=== PATIENT | female | born 1955 | race Caucasian/White ===

== ENCOUNTER → 2018-11-13 | Outpatient (CLI) | payer OTHER ==
[~2018-11-13] MED LIST: ALBU8.5H8 IH; BUPR-47 PO; DILT240C94 PO; LOVA40TA2 PO; OMEP40CA37 PO; VALS1TAB73 PO
== END | disposition home or self-care (01) ==
LOC: RAH 14:21
PROVIDERS: ATTEND Internal Medicine
DX: Z13.6 Encounter for screening for cardiovascular disorders (principal); K44.9 Diaphragmatic hernia without obstruction or gangrene
CPT/HCPCS: 75571

== ENCOUNTER 2021-12-23 10:42 | Observation (INO) | payer OTHER ==
[~2021-12-23] VITALS: Ht 162.6 cm; Wt 96.6 kg
[~2021-12-23 10:42] MED LIST changes: -BUPR-47 PO; +BUPR-49 PO; +OMEP40CA21 PO; -OMEP40CA37 PO
[2021-12-23] MEDS ORDERED: IPRATROPIUM/ALBUTEROL SULFATE 3 ML SOLUTION IH SCH (11:30)
[2021-12-23 11:36] LABS: BASOPHILS % (AUTO) 0.5 % (0.0-5.0); HEMATOCRIT 37.8 % (36-48); LYMPHOCYTES % (AUTO) 18.7 % (21.0-51.0); MEAN CORPUSCULAR HEMOGLOBIN 28.1 pg (27.0-33.0); MEAN CORPUSCULAR HGB CONC 32.5 g/dL (32.0-36.0); MEAN CORPUSCULAR VOLUME 86.5 fL (79-99); MONOCYTES % (AUTO) 14.8 % (3.0-13.0); NEUTROPHILS % (AUTO) 64.8 % (40.0-77.0); PLATELET COUNT (AUTO) 246 K/uL (130-400); RED BLOOD CELL COUNT(AUTO) 4.37 MIL/uL (4.00-5.50); RED CELL DISTRIBUTION WIDTH 14.5 % (11.0-15.5); WHITE BLOOD COUNT (AUTO) 5.9 K/uL (4.8-10.8)
[2021-12-23 11:40] LABS: APPEARANCE,URINE TURBID (CLEAR); BILIRUBIN,URINE NEGATIVE (NEGATIVE); COLOR,URINE YELLOW (YELLOW); GLUCOSE, URINE (UA) NEGATIVE (NEGATIVE); KETONES,URINE NEGATIVE (NEGATIVE); LEUKOCYTE ESTERASE ,URINE NEGATIVE Leu/uL (NEGATIVE); NITRATE,URINE NEGATIVE (NEGATIVE); OCCULT BLOOD,URINE NEGATIVE (NEGATIVE); PH,URINE 5.5 (5.0-8.0); PROTEIN,URINE 70 mg/dL (NEGATIVE)
[2021-12-23 11:44] LABS: BACTERIA,URINE FEW /HPF (None Seen); HYALINE CASTS, URINE 26-50 /LPF (0-1 /LPF); MUCUS,URINE MANY LPF (None Seen); SQUAMOUS EPITHELIAL CELL,UR MANY /HPF (0-2)
[2021-12-23 11:53] LABS: ALBUMIN 3.5 g/dL (3.5-5.0); CREATININE 1.1 mg/dL (0.5-1.5); POTASSIUM 3.9 mmol/L (3.5-5.1); TOTAL PROTEIN, SERUM 7.4 g/dL (6.0-8.3)
[2021-12-23 12:08] LABS: B-TYPE NATRIURETIC PEPTIDE 7 pg/mL (0-100)
[2021-12-23] MEDS ORDERED: ALBUTEROL 0.083% 2.5 MG/3 ML INH IH SCH (12:30)
[2021-12-23] MEDS ORDERED: ALBUTEROL 0.083% 2.5 MG/3 ML INH IH ONE (12:44)
[2021-12-23] MEDS ORDERED: MAGNESIUM 2GM PREMIX 50ML 50 ML IV SCH (12:50)
[2021-12-23] MEDS ORDERED: HEPARIN 25,000 UNITS/250ML D5W 250 ML IV SCH ×2 (13:30→17:00)
[2021-12-23] MEDS ORDERED: HEPARIN 5,000 UNIT VIAL SQ PRN (13:30)
[2021-12-23 13:46] LABS: INR 0.93 (0.85-1.15); PROTHROMBIN TIME 9.6 SEC (9.6-11.6)
[2021-12-23 13:47] LABS: PARTIAL THROMBOPLASTIN TIME 27.1 SEC (26.3-35.5)
[2021-12-23] MEDS ORDERED: FLUO20TA29 PO (14:42)
[2021-12-23] MEDS ORDERED: MAGN250T35 PO (14:42)
[2021-12-23] MEDS ORDERED: ASPI-1197 PO (14:42)
[2021-12-23] MEDS ORDERED: DOCU-378 PO (14:42)
[2021-12-23] MEDS ORDERED: OMEP40CA21 PO (14:42)
[2021-12-23] MEDS ORDERED: ZINC220T4 PO (14:42)
[2021-12-23] MEDS ORDERED: LOSA1TAB37 PO (14:42)
[2021-12-23] MEDS ORDERED: ADV250 IH (14:42)
[2021-12-23] MEDS ORDERED: ASCO100031 PO (14:42)
[2021-12-23] MEDS ORDERED: ATOR20TA65 PO (14:42)
[2021-12-23] MEDS ORDERED: ESTR1PAT87 TD (14:42)
[2021-12-23] MEDS ORDERED: CHOL100046 PO (14:42)
[2021-12-23] MEDS ORDERED: ALBU2.5V2 IH (14:42)
[2021-12-23] MEDS ORDERED: GUAIFENESIN-CODEINE 5 ML SYRUP ONE (15:48)
[2021-12-23] MEDS ORDERED: GUAIFENESIN-CODEINE 5 ML SYRUP PO ONE (16:00)
[2021-12-23] MEDS ORDERED: TEMAZEPAM 15 MG CAPSULE PO PRN (17:00)
[2021-12-23] MEDS ORDERED: ACETAMINOPHEN 325 MG TAB PO PRN (17:00)
[2021-12-23] MEDS ORDERED: LACTULOSE 20 GM/30 ML UDCUP PO PRN (17:00)
[2021-12-23] MEDS ORDERED: CLONIDINE HCL 0.1 MG TABLET PO PRN (17:00)
[2021-12-23] MEDS ORDERED: ACETAMINOPHEN 650 MG SUPPOSITORY RC PRN (17:00)
[2021-12-23] MEDS ORDERED: HYDRALAZINE 20MG/ML VIAL IV PRN (17:00)
[2021-12-23] MEDS ORDERED: ONDANSETRON 4MG INJ IVP PRN (17:00)
[2021-12-23 19:50] LABS: INR 0.97 (0.85-1.15); PROTHROMBIN TIME 10.6 SEC (9.6-11.6)
[2021-12-23 20:10] LABS: PARTIAL THROMBOPLASTIN TIME > 139.0 SEC (26.3-35.5)
[2021-12-23] MEDS: GUAIFENESIN-DM 200/20 MG 10 ML PO SCH (21:23)
[2021-12-23] MEDS: ENOXAPARIN SODIUM 100 MG/1 ML SQ SCH (21:24)
[2021-12-23 22:10] VITALS: BP 139/69
[2021-12-24 02:22] LABS: BASOPHILS % (AUTO) 0.5 % (0.0-5.0); EOSINOPHILS % (AUTO) 2.2 % (0.0-8.0); HEMATOCRIT 33.3 % (36-48); LYMPHOCYTES % (AUTO) 38.1 % (21.0-51.0); MEAN CORPUSCULAR HEMOGLOBIN 27.8 pg (27.0-33.0); MEAN CORPUSCULAR HGB CONC 31.8 g/dL (32.0-36.0); MEAN CORPUSCULAR VOLUME 87.4 fL (79-99); MONOCYTES % (AUTO) 16.3 % (3.0-13.0); NEUTROPHILS % (AUTO) 42.6 % (40.0-77.0); PLATELET COUNT (AUTO) 196 K/uL (130-400); RED BLOOD CELL COUNT(AUTO) 3.81 MIL/uL (4.00-5.50); RED CELL DISTRIBUTION WIDTH 14.4 % (11.0-15.5); WHITE BLOOD COUNT (AUTO) 3.7 K/uL (4.8-10.8)
[2021-12-24 02:44] LABS: MAGNESIUM 2.2 mg/dL (1.80-2.40); POTASSIUM 3.3 mmol/L (3.5-5.1)
[2021-12-24] MEDS: OSELTAMIVIR PHOSPHATE 75 MG CAP PO SCH ×3 (02:44→20:15)
[2021-12-24] MEDS: GUAIFENESIN-DM 200/20 MG 10 ML PO SCH ×4 (02:44→20:15)
[2021-12-24] MEDS ORDERED: DEXAMETHASONE SOD PHOSPHATE 4 MG/ML 1ML VIAL IV ONE (03:00)
[2021-12-24 04:07] LABS: B-TYPE NATRIURETIC PEPTIDE < 5 pg/mL (0-100)
[2021-12-24 04:29] VITALS: BP 121/55
[2021-12-24] MEDS ORDERED: LIDOCAINE HCL-MPF 1% 2ML VIAL IV PRN (06:00)
[2021-12-24] MEDS ORDERED: MAGNESIUM 2GM PREMIX 50ML 50 ML IV PRN (06:00)
[2021-12-24] MEDS ORDERED: POTASSIUM CHLORIDE 10MEQ/100ML 100 ML IV PRN (06:00)
[2021-12-24] MEDS ORDERED: POTASSIUM CHLORIDE 10% ELIXIR 20 MEQ/15 ML UDCUP PO PRN (06:00)
[2021-12-24 07:35] VITALS: BP 148/70
[2021-12-24] MEDS: PANTOPRAZOLE 40 MG TAB DR PO SCH (08:37)
[2021-12-24] MEDS: DOCUSATE SODIUM 100 MG CAP PO SCH (08:37)
[2021-12-24] MEDS: MAGNESIUM OXIDE 400 MG TABLET PO SCH (08:37)
[2021-12-24] MEDS: LOSARTAN/HYDROCHLOROTHIAZIDE 50-12.5MG TABLET PO SCH (08:37)
[2021-12-24] MEDS: FLUTICASONE/VILANTEROL 1 EACH AER.POW.BA IH SCH (08:37)
[2021-12-24] MEDS: ATORVASTATIN 20 MG TABLET PO SCH (08:37)
[2021-12-24] MEDS: ZINC SULFATE 220 CAPSULE PO SCH (08:38)
[2021-12-24] MEDS: ASCORBIC ACID 500 MG TAB PO SCH (08:38)
[2021-12-24] MEDS: FLUOXETINE HCL 20 MG CAPSULE PO SCH (08:38)
[2021-12-24] MEDS: ASPIRIN 81MG CHEW TAB PO SCH (08:39)
[2021-12-24] MEDS: ENOXAPARIN SODIUM 100 MG/1 ML SQ SCH (08:40)
[2021-12-24] MEDS: ***HM*** (Cholecalciferol (Vitamin D3) (Vitamin D3) 25 MCG) PO SCH (09:00)
[2021-12-24] MEDS: KCL 20 MEQ ERTAB PO PRN ×3 (09:23→20:17)
[2021-12-24 11:30] VITALS: BP 127/52
[2021-12-24] MEDS ORDERED: ALBUTEROL 0.083% 2.5 MG/3 ML INH IH ONE (14:32)
[2021-12-24] MEDS ORDERED: ALBUTEROL 0.083% 2.5 MG/3 ML INH IH STA (14:36)
[2021-12-24] MEDS: IPRATROPIUM/ALBUTEROL SULFATE 3 ML SOLUTION IH SCH ×3 (14:41→22:25)
[2021-12-24 15:20] VITALS: BP 117/73
[2021-12-24] MEDS ORDERED: CEFTRIAXONE 1G VIAL IVP SCH (16:30)
[2021-12-24] MEDS ORDERED: AZITHROMYCIN 500MG+NS 250ML IVPB SCH (16:30)
[2021-12-24] MEDS: SOLU-MEDROL 40MG VIAL IVP SCH (16:43)
[2021-12-24] MEDS ORDERED: DEXAMETHASONE 4 MG TAB PO SCH (20:00)
[2021-12-24 20:18] VITALS: BP 140/47
[2021-12-24] MEDS ORDERED: IPRATROPIUM/ALBUTEROL SULFATE 3 ML SOLUTION IH ONE (22:30)
[2021-12-24 23:47] VITALS: BP 116/49
[2021-12-25] MEDS: SOLU-MEDROL 40MG VIAL IVP SCH ×2 (00:56→08:54)
[2021-12-25] MEDS: IPRATROPIUM/ALBUTEROL SULFATE 3 ML SOLUTION IH SCH ×2 (02:06→07:06)
[2021-12-25] MEDS: GUAIFENESIN-DM 200/20 MG 10 ML PO SCH ×2 (03:10→09:10)
[2021-12-25 03:59] VITALS: BP 120/57
[2021-12-25 04:50] LABS: HEMATOCRIT 32.3 % (36-48); LYMPHOCYTES % (AUTO) 14.3 % (21.0-51.0); MEAN CORPUSCULAR HEMOGLOBIN 28.3 pg (27.0-33.0); MEAN CORPUSCULAR HGB CONC 32.2 g/dL (32.0-36.0); MONOCYTES % (AUTO) 7.1 % (3.0-13.0); NEUTROPHILS % (AUTO) 78.4 % (40.0-77.0); PLATELET COUNT (AUTO) 215 K/uL (130-400); RED BLOOD CELL COUNT(AUTO) 3.67 MIL/uL (4.00-5.50); RED CELL DISTRIBUTION WIDTH 14.1 % (11.0-15.5); WHITE BLOOD COUNT (AUTO) 4.1 K/uL (4.8-10.8)
[2021-12-25 05:12] LABS: ALBUMIN 3.3 g/dL (3.5-5.0); CREATININE 0.9 mg/dL (0.5-1.5); POTASSIUM 4.1 mmol/L (3.5-5.1); TOTAL PROTEIN, SERUM 6.8 g/dL (6.0-8.3)
[2021-12-25 07:25] VITALS: BP 120/64
[2021-12-25] MEDS: ***HM*** (Cholecalciferol (Vitamin D3) (Vitamin D3) 25 MCG) PO SCH (08:49)
[2021-12-25] MEDS: PANTOPRAZOLE 40 MG TAB DR PO SCH (08:54)
[2021-12-25] MEDS: DOCUSATE SODIUM 100 MG CAP PO SCH (08:54)
[2021-12-25] MEDS: LOSARTAN/HYDROCHLOROTHIAZIDE 50-12.5MG TABLET PO SCH (08:54)
[2021-12-25] MEDS: OSELTAMIVIR PHOSPHATE 75 MG CAP PO SCH (08:55)
[2021-12-25] MEDS: ATORVASTATIN 20 MG TABLET PO SCH (08:55)
[2021-12-25] MEDS: ASPIRIN 81MG CHEW TAB PO SCH (08:55)
[2021-12-25] MEDS: ASCORBIC ACID 500 MG TAB PO SCH (08:55)
[2021-12-25] MEDS: ZINC SULFATE 220 CAPSULE PO SCH (08:56)
[2021-12-25] MEDS: FLUOXETINE HCL 20 MG CAPSULE PO SCH (08:56)
[2021-12-25] MEDS: MAGNESIUM OXIDE 400 MG TABLET PO SCH (08:56)
[2021-12-25] MEDS: FLUTICASONE/VILANTEROL 1 EACH AER.POW.BA IH SCH (09:00)
[2021-12-25 11:25] VITALS: BP 134/68
[2021-12-25] MEDS ORDERED: OSEL75 PO (13:56)
[2021-12-25] MEDS ORDERED: LEVO750T68 PO (13:56)
[2021-12-25] MEDS ORDERED: PRED20TA3 PO (13:56)
== END 2021-12-25 14:57 | disposition home or self-care (01) ==
LOC: EDH 10:42 → EDHIP 15:42 → INTOOBSV 15:42 → UNDOADMOB 15:42 → OBSVTOIN 15:42 → EDHIP 16:51 → 4BH 21:18
PROVIDERS: ADMIT Internal Medicine; ATTEND Internal Medicine
DX: J45.901 Unspecified asthma with (acute) exacerbation (principal); Z20.822 Contact with and (suspected) exposure to COVID-19; J10.1 Influenza due to other identified influenza virus with other respiratory manifestations; I12.9 Hypertensive chronic kidney disease with stage 1 through stage 4 chronic kidney disease, or unspecified chronic kidney disease; N18.30 Chronic kidney disease, stage 3 unspecified; G47.33 Obstructive sleep apnea (adult) (pediatric); E78.5 Hyperlipidemia, unspecified; F41.9 Anxiety disorder, unspecified; J44.1 Chronic obstructive pulmonary disease with (acute) exacerbation; R77.8 Other specified abnormalities of plasma proteins; K44.9 Diaphragmatic hernia without obstruction or gangrene; Z79.890 Hormone replacement therapy; Z90.710 Acquired absence of both cervix and uterus; Z79.899 Other long term (current) drug therapy; Z98.891 History of uterine scar from previous surgery; Z90.722 Acquired absence of ovaries, bilateral; Z90.49 Acquired absence of other specified parts of digestive tract; Z79.82 Long term (current) use of aspirin
CPT/HCPCS: 94640 ×8; 96372 ×2; 96365; 96366 ×2; 99284; 82550 ×4; 83735 ×2; 83874 ×3; 84484 ×4; 80053 ×2; 83880 ×2; 85025 ×3; 85378; 85610 ×2; 85730 ×2; 87040 ×2; 87088; 87804 ×2; 83605; 81001; 36415 ×3; 87635; 71045; 78582; 96375; 96367; 84100; 80048; 93970; 96376; 84145; G0378 ×42; J1650 ×2; J1644 ×2; A9540; A9558; J1100; J0696; J2920 ×3; J0456

== ENCOUNTER 2022-02-17 12:46 | Emergency (ER) | payer OTHER ==
[~2022-02-17 12:46] MED LIST changes: +ADV250 IH; +ALBU2.5V2 IH; +ASCO100031 PO; +ASPI-1197 PO; +ATOR20TA65 PO; +CHOL100046 PO; +DOCU-378 PO; +ESTR1PAT87 TD; +FLUO20TA29 PO; +LEVO750T68 PO; +LOSA1TAB37 PO; +MAGN250T35 PO; +OSEL75 PO; +PRED20TA3 PO; +ZINC220T4 PO
[2022-02-17 13:53] VITALS: BP 139/71
[2022-02-17] MEDS ORDERED: KETOROLAC 30MG VIAL (30MG/ML) IM ONE (14:30)
[2022-02-17 15:26] LABS: APPEARANCE,URINE CLEAR (CLEAR); BILIRUBIN,URINE NEGATIVE (NEGATIVE); COLOR,URINE COLORLESS (YELLOW); GLUCOSE, URINE (UA) NEGATIVE (NEGATIVE); KETONES,URINE NEGATIVE (NEGATIVE); LEUKOCYTE ESTERASE ,URINE NEGATIVE Leu/uL (NEGATIVE); NITRATE,URINE NEGATIVE (NEGATIVE); OCCULT BLOOD,URINE NEGATIVE (NEGATIVE); PROTEIN,URINE NEGATIVE (NEGATIVE); UROBILINOGEN,URINE 0.2 mg/dL (0.2-1.0)
[2022-02-17 15:36] LABS: BACTERIA,URINE RARE /HPF (None Seen); SQUAMOUS EPITHELIAL CELL,UR FEW /HPF (0-2); WBC,URINE 0-1 /HPF (0-1)
[2022-02-17] MEDS ORDERED: CYCL-309 PO (15:42)
== END 2022-02-17 15:52 | disposition home or self-care (01) ==
LOC: EDH 12:46
DX: M62.830 Muscle spasm of back (principal); J45.909 Unspecified asthma, uncomplicated; Z79.1 Long term (current) use of non-steroidal anti-inflammatories (NSAID); Z79.51 Long term (current) use of inhaled steroids; Z79.52 Long term (current) use of systemic steroids; Z79.82 Long term (current) use of aspirin; Z79.899 Other long term (current) drug therapy; Z88.8 Allergy status to other drugs, medicaments and biological substances
CPT/HCPCS: 99283; 81001; 96372; J1885

== ENCOUNTER → 2024-06-28 | Outpatient (CLI) | payer OTHER, MEDICARE ==
[~2024-06-28] MED LIST changes: +CYCL-309 PO; +DILT240C81 PO; -DILT240C94 PO; +IOHEXOL 350 MG/ML 100ML INFUS..BTL IV ONE
--- NOTE | 2024-06-28 10:37 | HMCIMG ---
CT CARDIAC ANGIO W/CONT. CCTA HISTORY: Shortness of breath COMPARISON: None TECHNIQUE: Multiple sequential axial images of the chest were obtained along with the CT angiogram of the chest study. Patient was given 100 cc of Omnipaque through intravenous route. FINDINGS: There is no evidence of pulmonary nodule or parenchymal disease. No pleural effusion or pericardial effusion is seen. There is no evidence of pneumothorax. There are normal size mediastinal and hilar lymph nodes. The heart is borderline enlarged. Degenerative changes of the thoracolumbar spine are present. There is a large hiatal hernia. IMPRESSION: 1. No evidence of pulmonary nodule or effusion is seen. Please see CT angiogram report of coronary arteries.
--- NOTE | 2024-06-29 10:00 | CARDIOLOGY ---
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 A dedicated, limited window, coronary imaging protocol was used, with single breath-hold, retrospective ECG gating, and automated arrhythmia rejection. 100 cc of low osmolar contrast agent: Omnipaque 350 was delivered via a 18-gauge IV catheter in the right antecubital fossa, using a power injector and followed by 60 cc of normal saline bolus as a chaser. Collimated images were reformatted at 0.5 mm intervals, and sent to an offline independent workstation for interpretation, using 3D anatomic reconstructions: Curved multiplanar reconstructions, maximum intensity projections, and multiplanar imaging. No metoprolol was administered prior to scanning due to low baseline heart rate. 0.8 mg SL nitroglycerin was given. CORONARY ARTERY DESCRIPTIONS: The coronary arteries arise in normal position. Left main coronary artery: Normal caliber vessel that bifurcates into the LAD and LCx. No stenosis. Left anterior descending coronary artery: Normal caliber vessel and gives rise to diagonal and septal branches. No stenosis. Left circumflex coronary artery: Normal caliber, nondominant and gives rise to two small OM1 and OM2 branches a large OM 3 branch. No stenosis. Right coronary artery: Large, dominant vessel giving rise to the PL and PDA branches. No stenosis. CAD-RADs: 0, absence of CAD. Thoracic Aorta: Normal diameter. Radha Andre MD [facility] RADHA ANDRE MD Jun 29, 2024 10:00
== END | disposition home or self-care (01) ==
LOC: RAH 06-23 08:03
PROVIDERS: ATTEND Internal Medicine
DX: R06.02 Shortness of breath (principal); K44.9 Diaphragmatic hernia without obstruction or gangrene; M47.815 Spondylosis without myelopathy or radiculopathy, thoracolumbar region
CPT/HCPCS: 75574; Q9967